=== PATIENT | female | born 1975 | race Two or more races ===

== ENCOUNTER 2021-03-16 19:23 | Inpatient (IN) | payer MEDICAID ==
[~2021-03-16] VITALS: Ht 167.6 cm; Wt 74.8 kg
[2021-03-16] MEDS ORDERED: PNV1TABL50 PO (20:57)
[2021-03-16] MEDS ORDERED: HYDRALAZINE 20MG/ML VIAL IV PRN (21:00)
[2021-03-16] MEDS ORDERED: LABETALOL HCL 5MG/ML VIAL 20ML IV PRN ×3 (21:00)
[2021-03-16] MEDS ORDERED: LACTATED RINGERS 1,000 ML IV SCH (21:00)
[2021-03-16] MEDS ORDERED: METHYLERGONOVINE MALEATE 0.2 MG/ML IM PRN (21:00)
[2021-03-16] MEDS ORDERED: MISOPROSTOL 100MCG TABLET VG SCH (21:00)
[2021-03-16] MEDS ORDERED: CARBOPROST TROMETHAMINE 250 MCG/ML AMPUL IM PRN (21:00)
[2021-03-16] MEDS ORDERED: MAGNESIUM 4 G PREMIX 100 ML IV SCH (21:00)
[2021-03-16] MEDS: MAGNESIUM 20 G PREMIX (L & D) 500 ML IV SCH (21:30)
[2021-03-16 21:47] LABS: BASOPHILS % 0.3 % (0.0-2.0); EOSINOPHILS % 0.5 % (0.0-5.0); HEMATOCRIT. 34.8 % (36.0-48.0); HEMOGLOBIN. 12.4 g/dL (12.0-16.0); LYMPHOCYTES % 20.8 % (20.0-50.0); MEAN CORPUSCULAR HEMOGLOBIN 33.7 pg (28.0-32.0); MEAN CORPUSCULAR VOLUME 94.5 fL (81.0-99.0); MEAN PLATELET VOLUME 11.5 fl (7.4-10.4); MONOCYTES % 6.3 % (2.0-8.0); NEUTROPHILS % 72.1 % (40.0-76.0); PLATELET 112 x1000/uL (130-400); RED BLOOD CELL COUNT 3.68 mill/uL (4.2-5.4); RED CELL DISTRIBUTION WIDTH 13.1 % (11.6-14.6)
[2021-03-16 21:50] LABS: CLARITY URINE CLEAR (CLEAR); COLOR URINE YELLOW (YELLOW); KETONES URINE 2+ (NEGATIVE); LEUKOCYTE ESTERASE URINE NEGATIVE (NEGATIVE); NITRITE URINE NEGATIVE (NEGATIVE); OCCULT BLOOD URINE NEGATIVE (NEGATIVE); PH URINE 6.5 (4.5-8.0); PROTEIN URINE NEGATIVE (NEGATIVE); SPECIFIC GRAVITY URINE 1.011 (1.005-1.030); UROBILINOGEN URINE 0.2 E.U./dL (0.2-1.0)
[2021-03-16 21:53] LABS: CHLORIDE 105 mEq/L (98-107)
[2021-03-16 22:02] LABS: D-DIMER 1.71 mg/L FEU (<0.50); INR 0.9; PARTIAL THROMBOPLASTIN TIME 25.6 sec (23.4-31.0)
[2021-03-16 22:06] LABS: *AMPHETAMINES SCREEN URINE NEGATIVE (NEGATIVE); *BARBITURATES SCREEN URINE NEGATIVE (NEGATIVE); *BENZODIAZEPINES SCREEN URINE NEGATIVE (NEGATIVE); CANNABINOID URINE SCREEN NEGATIVE (NEGATIVE); METHADONE URINE SCREEN NEGATIVE (NEGATIVE); OPIATES URINE SCREEN NEGATIVE (NEGATIVE); PHENCYCLIDINE URINE SCREEN NEGATIVE (NEGATIVE)
[2021-03-16 22:07] LABS: *COCAINE SCREEN URINE NEGATIVE (NEGATIVE)
[2021-03-16] MEDS ORDERED: FENTANYL CITRATE/PF 50MCG/ML 2ML VIAL ONE (22:20)
[2021-03-16] MEDS ORDERED: CEFAZOLIN SODIUM 1000MG/VIAL ONE ×2 (22:21→23:35)
[2021-03-16] MEDS ORDERED: MORPHINE SULFATE/PF 1MG/ML 10ML AMP ONE (22:22)
[2021-03-16 22:23] LABS: HEPATITIS B SURFACE ANTIGEN NEGATIVE
[2021-03-16] MEDS ORDERED: HYDROMORPHONE HCL/PF 2MG/ML CPJ IV PRN ×2 (22:30→23:00)
[2021-03-16] MEDS ORDERED: ONDANSETRON HCL 4MG/2ML INJ IV PRN ×2 (22:30→23:00)
[2021-03-16] MEDS ORDERED: LABETALOL 5MG/ML SYR 20 MG/4 ML SYRINGE IV PRN ×2 (22:30→23:00)
[2021-03-16] MEDS ORDERED: MEPERIDINE HCL/PF 25MG/ML CPJ IV PRN ×2 (22:30→23:00)
[2021-03-16] MEDS ORDERED: BUTORPHANOL TARTRATE 2 MG/ML VIAL IM PRN (23:00)
[2021-03-16] MEDS ORDERED: KETOROLAC 30MG/ML VIAL IV PRN ×2 (23:00→23:30)
[2021-03-16] MEDS ORDERED: DIPHENHYDRAMINE 25MG CAPSULE PO PRN (23:00)
[2021-03-16] MEDS ORDERED: BISACODYL 10MG SUPP PR PRN (23:30)
[2021-03-16] MEDS ORDERED: IBUPROFEN 400MG TABLET PO PRN (23:30)
[2021-03-16] MEDS ORDERED: DEXT 5%/LR + PITOCIN 20UNITS/L 1,000 ML IV SCH (23:30)
[2021-03-16] MEDS ORDERED: OXYCODONE HCL/ACETAMINOPHEN 5/325MG TABLET PO PRN (23:30)
[2021-03-16] MEDS ORDERED: SODIUM CHLORIDE 0.9% 10ML VIAL ONE (23:35)
[2021-03-16] MEDS ORDERED: EPHEDRINE SULFATE 50MG/ML VIAL ONE (23:36)
[2021-03-17] VITALS (7 sets, daily range): BP systolic 99–143; BP diastolic 56–78
[2021-03-17] MEDS ORDERED: MAGNESIUM 20 G PREMIX (L & D) 500 ML IV SCH (04:00)
[2021-03-17 07:02] LABS: BASOPHILS % 0.1 % (0.0-2.0); EOSINOPHILS % 0.1 % (0.0-5.0); HEMATOCRIT. 37.2 % (36.0-48.0); HEMOGLOBIN. 12.4 g/dL (12.0-16.0); LYMPHOCYTES % 10.4 % (20.0-50.0); MEAN CORPUSCULAR VOLUME 95.8 fL (81.0-99.0); MEAN PLATELET VOLUME 11.3 fl (7.4-10.4); MONOCYTES % 5.3 % (2.0-8.0); NEUTROPHILS % 84.1 % (40.0-76.0); PLATELET 120 x1000/uL (130-400); RED BLOOD CELL COUNT 3.88 mill/uL (4.2-5.4); RED CELL DISTRIBUTION WIDTH 13.5 % (11.6-14.6)
[2021-03-17] MEDS: MAGNESIUM 20 G PREMIX (L & D) 500 ML IV SCH (14:18)
[2021-03-17] MEDS: FERROUS SULFATE 325MG TABLET PO SCH (14:19)
[2021-03-17] MEDS: IBUPROFEN 800MG TABLET PO PRN (14:19)
[2021-03-17] MEDS: PRENATAL VIT/FE FUMARATE/FA TABLET PO SCH (14:19)
[2021-03-18] VITALS: BP 137/80
[2021-03-18 04:00] VITALS: BP 142/83
[2021-03-18] MEDS: IBUPROFEN 800MG TABLET PO PRN ×3 (04:10→20:26)
[2021-03-18 08:00] VITALS: BP 136/76
[2021-03-18] MEDS: FERROUS SULFATE 325MG TABLET PO SCH (09:55)
[2021-03-18] MEDS: PRENATAL VIT/FE FUMARATE/FA TABLET PO SCH (09:55)
[2021-03-18 16:00] VITALS: BP 134/77
[2021-03-18 20:00] VITALS: BP 147/93
[2021-03-19] VITALS: BP 159/90
[2021-03-19] MEDS ORDERED: LABETALOL HCL 100MG TABLET PO SCH (02:00)
[2021-03-19 04:00] VITALS: BP 133/74
[2021-03-19] MEDS ORDERED: FERR325T23 PO (06:59)
[2021-03-19] MEDS ORDERED: LABE100T5 PO (06:59)
[2021-03-19] MEDS ORDERED: IBUP-2030 PO (06:59)
[2021-03-19 07:30] VITALS: BP 137/81
[2021-03-19] MEDS: IBUPROFEN 800MG TABLET PO PRN (11:28)
== END 2021-03-19 14:00 | disposition home or self-care (01) | DRG 540 ==
LOC: OBSVTOIN 19:23 → 8 EST LDRP 19:23 → 8 EST A/PP 03-17 03:25
PROVIDERS: ADMIT Obstetrics & Gynecology; ATTEND Obstetrics & Gynecology
PROC: 10D00Z1 Extraction of Products of Conception, Low, Open Approach (ICD-10-PCS; principal; 2021-03-16)
DX: O13.4 Gestational [pregnancy-induced] hypertension without significant proteinuria, complicating childbirth (principal); D69.6 Thrombocytopenia, unspecified; O34.211 Maternal care for low transverse scar from previous cesarean delivery; O99.12 Other diseases of the blood and blood-forming organs and certain disorders involving the immune mechanism complicating childbirth; O14.94 Unspecified pre-eclampsia, complicating childbirth; Z20.822 Contact with and (suspected) exposure to COVID-19; Z37.0 Single live birth; Z3A.38 38 weeks gestation of pregnancy; Z82.49 Family history of ischemic heart disease and other diseases of the circulatory system
CPT/HCPCS: 36415; 80053; 80305; 81003; 83735; 84550; 85025; 85379; 85384; 86592; 86703; 86762; 86850; 86900; 86920; 87340; 87426; 88307; 99281; G0378; J0690; J2274; J2405; J2590; J3010; J3475; J3490; A4315